=== PATIENT | female | born 1975 | race Caucasian/White ===

== ENCOUNTER 2018-12-21 06:59 | Inpatient (IN) | payer BC ==
[~2018-12-21] VITALS: Ht 154.9 cm; Wt 74.4 kg
[~2018-12-21 06:59] MED LIST: LACTATED RINGERS 1,000 ML IV SCH
[2018-12-21 08:20] LABS: UCG SCREEN NEGATIVE
[2018-12-21] MEDS ORDERED: MIDAZOLAM HCL 2 MG/2 ML VIAL ONE (09:03)
[2018-12-21] MEDS ORDERED: NEOSTIGMINE METHYLSULFATE 1MG/ML 10 ML VIAL ONE (09:03)
[2018-12-21] MEDS ORDERED: PROPOFOL 200MG/20ML VIAL IV ONE (09:03)
[2018-12-21] MEDS ORDERED: FENTANYL CITRATE/PF 50MCG/ML 2ML VIAL ONE ×4 (09:03→09:38)
[2018-12-21] MEDS ORDERED: CEFAZOLIN SODIUM 1000MG/VIAL ONE (09:04)
[2018-12-21] MEDS ORDERED: SUCCINYLCHOLINE CHLORIDE 200MG/10ML IV ONE (09:04)
[2018-12-21] MEDS ORDERED: ONDANSETRON HCL 4MG/2ML INJ ONE (09:04)
[2018-12-21] MEDS ORDERED: LIDOCAINE HCL/PF 1% 10 MG/ML 5ML VIAL ONE (09:04)
[2018-12-21] MEDS ORDERED: GLYCOPYRROLATE 0.2 MG/ML 2ML VIAL ONE (09:04)
[2018-12-21] MEDS ORDERED: EPHEDRINE SULFATE 50MG/ML VIAL ONE (09:04)
[2018-12-21] MEDS ORDERED: SODIUM CHLORIDE 0.9% 10ML VIAL ONE (09:04)
[2018-12-21] MEDS ORDERED: PHENYLEPHRINE HCL 10 MG/ML 1ML (IV VIAL) IV ONE (09:04)
[2018-12-21] MEDS ORDERED: DEXAMETHASONE 4MG/ML 1ML VIAL ONE (09:04)
[2018-12-21] MEDS ORDERED: METOCLOPRAMIDE HCL 10MG/2ML VIAL ONE (09:04)
[2018-12-21] MEDS ORDERED: ROCURONIUM BROMIDE 10MG/ML VIAL 5ML IV ONE (09:08)
[2018-12-21] MEDS ORDERED: TRANEXAMIC ACID IV ONE (10:15)
[2018-12-21] MEDS ORDERED: SODIUM CHLORIDE 0.9% IV ONE (10:15)
[2018-12-21] MEDS ORDERED: SODIUM CHLORIDE 0.9% 1,000 ML IV ONE (10:50)
[2018-12-21] MEDS ORDERED: MORPHINE SULFATE 2 MG/ML CPJ (NOT FOR IM USE) IV PRN (11:00)
[2018-12-21] MEDS ORDERED: ONDANSETRON HCL 4MG/2ML INJ IV PRN (11:00)
[2018-12-21] MEDS ORDERED: OXYCODONE HCL/ACETAMINOPHEN 5/325MG TABLET PO PRN (11:00)
[2018-12-21] MEDS: HYDROMORPHONE HCL/PF 2MG/ML CPJ IV PRN ×5 (11:12→11:59)
[2018-12-21 13:06] VITALS: BP 98/77
[2018-12-21 14:00] VITALS: BP 121/75
[2018-12-21] MEDS: KETOROLAC 30MG/ML VIAL IV SCH ×2 (14:17→18:37)
[2018-12-21 16:00] VITALS: BP 120/75
[2018-12-21] MEDS: MORPHINE SULFATE 4 MG/ML CPJ (NOT FOR IM USE) IV PRN (16:11)
[2018-12-21 20:00] VITALS: BP 123/72
[2018-12-22] VITALS: BP 106/63
[2018-12-22 04:00] VITALS: BP 103/61
[2018-12-22] MEDS: KETOROLAC 30MG/ML VIAL IV SCH ×5 (06:01→23:57)
[2018-12-22 07:09] LABS: BASOPHILS % 0.2 % (0.0-2.0); EOSINOPHILS % 0.1 % (0.0-5.0); HEMATOCRIT. 33.9 % (36.0-48.0); HEMOGLOBIN. 11.3 g/dL (12.0-16.0); LYMPHOCYTES % 12.3 % (20.0-50.0); MEAN CORPUSCULAR HEMOGLOBIN 29.4 pg (28.0-32.0); MEAN CORPUSCULAR VOLUME 88.3 fL (81.0-99.0); MEAN PLATELET VOLUME 9.4 fl (7.4-10.4); MONOCYTES % 7.7 % (2.0-8.0); NEUTROPHILS % 79.7 % (40.0-76.0); PLATELET 279 x1000/uL (130-400); RED BLOOD CELL COUNT 3.83 mill/uL (4.2-5.4); RED CELL DISTRIBUTION WIDTH 13.2 % (11.6-14.6)
[2018-12-22 08:00] VITALS: BP 100/65
[2018-12-22 12:00] VITALS: BP 110/65
[2018-12-22 16:00] VITALS: BP 108/60
[2018-12-22 20:00] VITALS: BP 114/72
[2018-12-22] MEDS ORDERED: ACETAMINOPHEN 500MG TABLET PO ONE (20:00)
[2018-12-23] VITALS: BP 108/59
[2018-12-23 04:00] VITALS: BP 106/52
[2018-12-23] MEDS: KETOROLAC 30MG/ML VIAL IV SCH ×3 (06:19→17:50)
[2018-12-23 08:00] VITALS: BP 113/70
[2018-12-23] MEDS: ACETAMINOPHEN 500MG TABLET PO SCH ×4 (09:53→22:08)
[2018-12-23 12:00] VITALS: BP 102/63
[2018-12-23 16:00] VITALS: BP 110/67
[2018-12-23 20:00] VITALS: BP 113/74
[2018-12-24] VITALS: BP 114/79
[2018-12-24] MEDS: KETOROLAC 30MG/ML VIAL IV SCH ×3 (00:21→12:31)
[2018-12-24 04:00] VITALS: BP 116/76
[2018-12-24 05:44] VITALS: BP 116/76
[2018-12-24 06:36] VITALS: BP 116/76
[2018-12-24] MEDS: ACETAMINOPHEN 500MG TABLET PO SCH ×2 (06:40→13:59)
[2018-12-24] MEDS: MORPHINE SULFATE 4 MG/ML CPJ (NOT FOR IM USE) IV PRN ×2 (08:51→13:28)
== END 2018-12-24 14:12 | disposition home or self-care (01) | DRG 743 ==
LOC: OR 06:59 → 6EST 07:00
PROVIDERS: ADMIT Obstetrics & Gynecology; ATTEND Obstetrics & Gynecology
PROC: 0UB90ZZ Excision of Uterus, Open Approach (ICD-10-PCS; principal; 2018-12-21)
DX: N83.8 Other noninflammatory disorders of ovary, fallopian tube and broad ligament (principal); D25.9 Leiomyoma of uterus, unspecified; Z79.899 Other long term (current) drug therapy
CPT/HCPCS: 36415; 81025; 88304; 88305; J0330; J0690; J1100; J1170; J1885; J2250; J2270; J2370; J2405; J2704; J2710; J2765; J3010; J3490; J7050